=== PATIENT | female | born 1995 | race Caucasian/White ===

== ENCOUNTER → 2018-07-31 | Outpatient (CLI) | payer OTHER | END | disposition home or self-care (01) | LOC: RAD 13:14 | PROVIDERS: ATTEND Family Medicine | DX: M25.562 Pain in left knee (principal) ==

== ENCOUNTER → 2019-01-27 | Outpatient (CLI) | payer OTHER | END | disposition home or self-care (01) | LOC: RAD 15:54 | PROVIDERS: ATTEND Family Medicine | DX: M54.5 Low back pain (principal); M25.552 Pain in left hip | CPT/HCPCS: 72110 ==

== ENCOUNTER 2019-04-01 16:40 | Emergency (ER) | payer OTHER ==
[~2019-04-01] VITALS: Ht 167.6 cm; Wt 117.0 kg
[2019-04-01 16:40] VITALS: BP 138/79
[2019-04-01 17:39] LABS: ANION GAP 6 mmol/L (5-15); CALCIUM 8.5 mg/dL (8.5-10.1); CHLORIDE 109 mmol/L (98-107); CREATININE 0.82 mg/dL (0.55-1.02)
[2019-04-01 17:40] LABS: ALANINE AMINOTRANSFERASE 31 U/L (12-78); ALBUMIN 3.4 g/dL (3.4-5.0)
[2019-04-01 17:41] LABS: BASOPHILS # (AUTO) 0.04 x10^3/uL (0-0.1); BASOPHILS % (AUTO) 1 % (0-1); EOSINOPHILS # (AUTO) 0.17 x10^3/uL (0-0.4); EOSINOPHILS % (AUTO) 2 % (1-7); LYMPHOCYTES # (AUTO) 2.74 x10^3/uL (1-3.4); LYMPHOCYTES % (AUTO) 35 % (22-44); MD NO; MEAN CORPUSCULAR HEMOGLOBIN 29.7 pg (27.0-34.8); MEAN CORPUSCULAR VOLUME 89.9 fL (80-100); MEAN PLATELET VOLUME 7.4 fL (7.4-10.4); MONOCYTES # (AUTO) 0.57 x10^3/uL (0.2-0.8); MONOCYTES % (AUTO) 7 % (2-9); NEUTROPHILS % (AUTO) 56 % (42-75); PLATELET COUNT 306 x10^3/uL (130-400); RED BLOOD COUNT 4.55 x10^6/uL (3.82-5.3); RED CELL DISTRIBUTION WIDTH 13.5 % (9.6-15.2)
[2019-04-01 17:44] LABS: ALKALINE PHOSPHATASE 65 U/L (45-117); BILIRUBIN,TOTAL 0.3 mg/dL (0.2-1.0); TOTAL PROTEIN 7.3 g/dL (6.4-8.2)
--- NOTE | 2019-04-01 18:00 | NUR ---
PT UPRIGHT ON GURNEY AWAKE & COMFORTABLE, WATCHING TV, RESPONDS APPROP TO STAFF, NAD, COMFORT MEASURES PROVIDED, FRIEND AT BS, CALL LIGHT WITHIN REACH.
[2019-04-01 18:04] LABS: MICROSCOPIC INDICATED
[2019-04-01 18:18] LABS: CULTURE INDICATED? YES
--- NOTE | 2019-04-01 18:54 | NUR ---
REPORT GIVEN TO PAM
== END 2019-04-01 20:18 | disposition home or self-care (01) ==
LOC: ED 20:00
DX: N30.01 Acute cystitis with hematuria (principal); R11.0 Nausea
CPT/HCPCS: 36415; 74176; 80053; 81001; 84703; 85025; 87086; 99284

== ENCOUNTER → 2020-01-15 | Outpatient (CLI) | payer OTHER | END | disposition home or self-care (01) | LOC: RAD 14:02 | PROVIDERS: ATTEND Family Medicine | DX: M25.562 Pain in left knee (principal) ==

== ENCOUNTER → 2020-07-02 | Outpatient (CLI) | payer OTHER | END | disposition home or self-care (01) | LOC: CFH 09:54 | PROVIDERS: ATTEND Family Medicine | DX: S83.282A Other tear of lateral meniscus, current injury, left knee, initial encounter (principal); M23.342 Other meniscus derangements, anterior horn of lateral meniscus, left knee; M23.042 Cystic meniscus, anterior horn of lateral meniscus, left knee; N64.4 Mastodynia; X58.XXXA Exposure to other specified factors, initial encounter; Y93.89 Activity, other specified; Y92.89 Other specified places as the place of occurrence of the external cause; Y99.8 Other external cause status | CPT/HCPCS: 76642 ==